=== PATIENT | male | born 1965 | race Caucasian/White ===

== ENCOUNTER 2016-10-04 10:25 | Inpatient (IN) | payer BC ==
[~2016-10-04] VITALS: Ht 185.4 cm; Wt 110.0 kg
[~2016-10-04 10:25] MED LIST: ALEVE220 MG PO; ATIVAN0.5 MG PO; CALCIUM 600 MG1 EACH PO; CELEBREX100 MG PO; CYANOCOBALAM1000 MCG PO; CYMBALTA30 MG PO; DAILY MULTIPLE1 EAC2 PO; DAILY VITAMIN1 EAC8 PO; FOLIC ACID1 MG PO; FOSAMAX70 MG PO; LORCET 5-325 M1 EACH PO; LOW DOSE ASPIRI81 M1 PO; NIACIN 500 MG1 EACH PO; OTEZLA30 MG PO; PRILOSEC20 MG PO; PRILOSEC40 MG PO; PRINIVIL5 MG PO; TYLENOL REGULA325 MG PO; VICODIN 5-3001 EACH PO; VITAMIN B-12500 MC3 PO; VITAMIN C1000 MG PO; VITAMIN D35000 UNIT PO; XELJANZ5 MG PO; ZYRTEC10 M3 PO; vitamin d PO
[2016-10-04 10:45] VITALS: BP 172/90
[2016-10-04] MEDS ORDERED: COLACE100 MG PO (10:59)
[2016-10-04] MEDS ORDERED: OXYCODONE20 MG/1 ML PO (11:34)
[2016-10-04 12:00] VITALS: BP 133/84
[2016-10-04 15:23] VITALS: BP 150/74
[2016-10-05 00:30] VITALS: BP 155/79
[2016-10-05 05:35] VITALS: BP 144/76
[2016-10-05 07:03] LABS: HEMATOCRIT 29.8 % (38.0-50.0); MCH 31.5 PG (29.0-34.0); MCHC 33.9 G/DL (30.0-36.0); MCV 92.8 FL (86-99); MEAN PLAT.VOLUME 10.1 uM^3 (9.0-12.4); NRBC (%) 0.3 /100 WBC (0-0); PLATELET COUNT 247 K/uL (156-360); RBC DIS.WIDTH-CV 13.5 % (11.8-14.6); RBC DIS.WIDTH-SD 45.1 % (39-53); RED BLOOD COUNT 3.21 M/uL (4.00-5.50)
[2016-10-05 07:49] LABS: ALKALINE PHOSPHATASE 96 IU/L (3-129); ANION GAP 9 MEQ/L (2-14); CHLORIDE 107 MEQ/L (99-109); GFR ESTIMATE (CALCULATED) > 59 mL/min/; GLUCOSE 92 mg/dL (70-99); SAMPLE HEMOLYSIS CHECK 0; SAMPLE ICTERIC CHECK 0; SAMPLE LIPEMIA CHECK 0; SODIUM 140 MEQ/L (136-147); TOTAL BILIRUBIN 1.8 MG/DL (0.0-1.0); UREA NITROGEN (BUN) 15 mg/dL (9-23)
[2016-10-05 15:04] VITALS: BP 136/753
[2016-10-06 04:22] VITALS: BP 155/68
[2016-10-06 06:44] LABS: HEMATOCRIT 30.1 % (38.0-50.0); MCH 31.3 PG (29.0-34.0); MCHC 33.9 G/DL (30.0-36.0); MCV 92.3 FL (86-99); PLATELET COUNT 239 K/uL (156-360); RBC DIS.WIDTH-CV 13.9 % (11.8-14.6); RED BLOOD COUNT 3.26 M/uL (4.00-5.50); WHITE BLOOD COUNT 8.3 K/uL (4.1-10.2)
[2016-10-06 07:16] LABS: ALKALINE PHOSPHATASE 94 IU/L (3-129); ANION GAP 8 MEQ/L (2-14); CHLORIDE 106 MEQ/L (99-109); GFR ESTIMATE (CALCULATED) > 59 mL/min/; GLUCOSE 98 mg/dL (70-99); POTASSIUM 4.1 MEQ/L (3.7-5.4); SAMPLE HEMOLYSIS CHECK 0; SAMPLE ICTERIC CHECK 0; SAMPLE LIPEMIA CHECK 0; SODIUM 139 MEQ/L (136-147); UREA NITROGEN (BUN) 15 mg/dL (9-23)
[2016-10-06 07:18] LABS: TOTAL BILIRUBIN 1.3 MG/DL (0.0-1.0)
[2016-10-06 10:20] VITALS: BP 129/85
[2016-10-06 12:52] LABS: ADD MIUA? NO; BILIRUBIN NEGATIVE; BLOOD NEGATIVE; COLOR AMBER ((YELLOW)); GLUCOSE (STRIP) NEGATIVE; KETONES NEGATIVE; LEUKOCYTES NEGATIVE; NITRITE NEGATIVE; PROTEIN (STRIP) NEGATIVE; SPECIFIC GRAVITY 1.025 (1.000-1.030)
[2016-10-06] MEDS ORDERED: COSENTYX P150 MG/11 SC (15:53)
[2016-10-06 16:13] VITALS: BP 123/64
[2016-10-07 04:39] VITALS: BP 118/58
[2016-10-07 07:37] LABS: EOSINOPHIL (%) 1.6 % (0-5); EOSINOPHIL COUNT 0.2 K/uL (0-0.3); HEMATOCRIT 32.6 % (38.0-50.0); IMMATURE GRANULOCYTE (%) 4.5 % (0.0-0.7); IMMATURE GRANULOCYTE COUNT 0.4 K/uL; INSTRUMENT ABS NEUTROPHIL CT 6.2 K/uL; LYMPHOCYTE COUNT 1.6 K/uL (1.0-2.8); MCH 30.3 PG (29.0-34.0); MCHC 32.5 G/DL (30.0-36.0); MCV 93.1 FL (86-99); MEAN PLAT.VOLUME 9.6 uM^3 (9.0-12.4); MONOCYTE (%) 10.9 % (3-12); NEUTROPHIL (%) 65.6 % (45-76); NEUTROPHIL COUNT 6.2 K/uL (1.8-6.4); PLATELET COUNT 280 K/uL (156-360); RBC DIS.WIDTH-CV 14.3 % (11.8-14.6); RBC DIS.WIDTH-SD 45.9 % (39-53); WHITE BLOOD COUNT 9.4 K/uL (4.1-10.2)
[2016-10-07 07:53] LABS: INTER. NORMALIZED RATIO 1.1; PROTHROMBIN TIME 11.2 (9.2-11.2)
[2016-10-07 07:54] LABS: ALKALINE PHOSPHATASE 98 IU/L (3-129); DIRECT BILIRUBIN 0.4 mg/dL (0.0-0.3); TOTAL BILIRUBIN 1.3 MG/DL (0.0-1.0)
[2016-10-07 08:44] LABS: FERRITIN 191 NG/ML (22-322)
[2016-10-07 10:19] LABS: HBSG INDEX 0.24; HPCA INDEX 0.16
[2016-10-07 17:16] VITALS: BP 120/64
[2016-10-08 06:19] VITALS: BP 124/65
[2016-10-08] MEDS ORDERED: LIDOCAINE700 MG TD (14:02)
[2016-10-08] MEDS ORDERED: LORATADINE5 MG/5 M3 PO (14:02)
[2016-10-08] MEDS ORDERED: SENNA8.8 MG/5 M PO (14:02)
[2016-10-08] MEDS ORDERED: CALCIDOL8000 UNIT/ PO (14:02)
[2016-10-08] MEDS ORDERED: GABAPENTIN250 MG/5 M PO (14:02)
[2016-10-08] MEDS ORDERED: TRIPLE ANTIB28.35 GM TP (14:02)
[2016-10-08] MEDS ORDERED: BACLOFEN10 MG PO (14:02)
[2016-10-08] MEDS ORDERED: BACITRACIN28.4 GM TP (14:02)
[2016-10-08] MEDS ORDERED: OXYCODONE H5 MG/5 ML PO (14:02)
[2016-10-08] MEDS ORDERED: LOVENOX30 MG/0.3 SC (14:02)
[2016-10-08] MEDS ORDERED: CHLORHEXIDINE473 ML PO (14:02)
[2016-10-08] MEDS ORDERED: PRINIVIL5 MG PO (14:02)
[2016-10-08] MEDS ORDERED: POLYETHYLENE GL17 GM PO (14:02)
[2016-10-08 15:50] VITALS: BP 117/72
[2016-10-09 05:08] VITALS: BP 129/74
== END 2016-10-09 10:14 | DRG 947 ==
LOC: 3WEST 10:25
PROVIDERS: Internal Medicine Gastroenterology; Physical Medicine & Rehabilitation Pain Medicine
DX: R53.1 Weakness (principal); S72.92XA Unspecified fracture of left femur, initial encounter for closed fracture; D62 Acute posthemorrhagic anemia; L40.50 Arthropathic psoriasis, unspecified; M35.00 Sjogren syndrome, unspecified; I10 Essential (primary) hypertension; M81.0 Age-related osteoporosis without current pathological fracture; M79.7 Fibromyalgia; M19.90 Unspecified osteoarthritis, unspecified site; G89.29 Other chronic pain; K76.0 Fatty (change of) liver, not elsewhere classified; Z68.31 Body mass index [BMI] 31.0-31.9, adult; Z98.1 Arthrodesis status; Z82.49 Family history of ischemic heart disease and other diseases of the circulatory system
CPT/HCPCS: 76705; 80053; 80076; 81003; 82728; 85025; 85027; 85610; 86803; 87086; 87340; 97110 GO; 97530 GP; A6260; J1650